=== PATIENT | male | born 2000 | race Caucasian/White ===

== ENCOUNTER 2023-02-21 14:48 | Emergency (ER) | payer OTHER, SELFPAY ==
[2023-02-21 14:58] VITALS: BP 163/121; PULSE 110; RESP 18; TEMP 36.4; O2SAT 97; BMI 45.6
--- NOTE | 2023-02-21 15:05 | CRLHL7_ITS ---
For Patients: As a result of the Cures Act, medical imaging exams and procedure reports are released immediately into your electronic medical record. You may view this report before your referring provider. If you have questions, please contact your health care provider. INDICATION: Chest pain. TECHNIQUE: Chest 1 views. COMPARISON: None. FINDINGS: Cardiovascular and mediastinum: Heart size and vasculature are normal in caliber and appearance. Lungs and pleural spaces: Lungs are clear. No sign of infiltrate or mass. No sign of pleural effusion. No pneumothorax. Bones and soft tissues: No significant findings. IMPRESSION: No acute or significant findings. Dictated by Francois Choudhury MD @ 02/21/2023 4:32:12 PM (Electronically Signed)
--- NOTE | 2023-02-21 15:06 | ED_ITS ---
HPI - Chest Pain General Chief Complaint: Chest Pain <Bharathi Manzanares MD - Last Filed: 02/21/23 15:08> Stated Complaint: Lungs feel full, legs weak, numb R arm <Bharathi Manzanares MD - Last Filed: 02/21/23 15:08> Time Seen by Provider: 02/21/23 15:05 <Bharathi Manzanares MD - Last Filed: 02/21/23 15:08> History of Present Illness HPI narrative: Patient is a 22-year-old gentleman who presents with 10 minutes of left- sided chest pain. 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 He is 22 years old takes no home medications. He admits that he is not active. He does not smoke or use alcohol in excess. He has had no other drug use. He states he feels tingly all over his body as result. He is having no shortness of breath no diaphoresis no nausea no vomiting no fevers no chills. <Bharathi Manzanares MD - Last Filed: 02/21/23 15:08> Related Data Home Medications: Home Medications Medication Instructions Recorded Confirmed No Known Home Medications 02/21/23 02/21/23 <Bharathi Manzanares MD - Last Filed: 02/21/23 15:08> Allergies/Adverse Reactions: Allergies Allergy/AdvReac Type Severity Reaction Status Date / Time No Known Drug Allergies Allergy Verified 02/21/23 15:01 <Bharathi Manzanares MD - Last Filed: 02/21/23 15:08> Review of Systems Status of ROS Reports: 10 or more systems reviewed and unremarkable except as noted in History and below <Bharathi Manzanares MD - Last Filed: 02/21/23 15:08> [facility] Social History: Social History Smoking Status: Never smoker Do you use any of these nicotine containing products: None How often do you have a drink containing alcohol: 2-4 times a month AUDIT-C Alcohol total score: 2 Non-prescribed substance use: denies use service: No <Bharathi Manzanares MD - Last Filed: 02/21/23 15:08> Exam Narrative Exam Narrative: EXAM GENERAL: Patient appears comfortable and well. Anxious. EYES: No scleral icterus. ENT: Tympanic membranes and oropharynx normal. THYROID: no thyroid nodules or thyromegaly. LYMPH: No supraclavicular or cervical lymphadenopathy. SKIN: Visible skin seen during exam normal or with benign process only. EXT: No dependent lower extremity pedal edema. HEART: Regular rate and rhythm with no murmurs, rubs, or gallops. LUNGS: Clear to auscultation bilaterally with no crackles or wheezes. ABD: Soft, non tender, non distended. PSYCH: Good eye contact, speech is not pressured. <Bharathi Manzanares MD - Last Filed: 02/21/23 15:08> Const Vital Signs, click to edit/add: Vital Signs - 24 hr 02/21/23 14:58 02/21/23 15:16 02/21/23 15:30 Temperature 97.6 F Pulse Rate 107 H 107 H Pulse Rate [Pulse Oximeter] 110 H Respiratory Rate 18 Blood Pressure [Right Upper Arm] 163/121 H Pulse Oximetry 97 97 97 Oxygen Delivery Method 02/21/23 15:45 02/21/23 17:06 Temperature Pulse Rate 104 H Pulse Rate [Pulse Oximeter] 98 Respiratory Rate 18 Blood Pressure [Right Upper Arm] 152/108 H Pulse Oximetry 97 96 Oxygen Delivery Method Room Air <Bharathi Manzanares MD - Last Filed: 02/21/23 15:08> Vital Signs - 24 hr 02/21/23 14:58 02/21/23 15:16 02/21/23 15:30 Temperature 97.6 F Pulse Rate 107 H 107 H Pulse Rate [Pulse Oximeter] 110 H Respiratory Rate 18 Blood Pressure [Right Upper Arm] 163/121 H Pulse Oximetry 97 97 97 Oxygen Delivery Method 02/21/23 15:45 02/21/23 17:06 Temperature Pulse Rate 104 H Pulse Rate [Pulse Oximeter] 98 Respiratory Rate 18 Blood Pressure [Right Upper Arm] 152/108 H Pulse Oximetry 97 96 Oxygen Delivery Method Room Air <Jorge Luis Casanova DO - Last Filed: 02/21/23 18:08> Course Course ED Course: Patient seen examined. EKG chest x-ray D-dimer troponin CBC basic metabolic panel ordered. <Bharathi Manzanares MD - Last Filed: 02/21/23 15:08> Vital Signs Vital signs: Initial Vital Signs Temperature 97.6 F 02/21/23 14:58 Temperature Source Temporal Artery Scan 02/21/23 14:58 Pulse Rate 110 H 02/21/23 14:58 Pulse Rhythm Regular 02/21/23 14:58 Respiratory Rate 18 02/21/23 14:58 Blood Pressure 163/121 H 02/21/23 14:58 Blood Pressure Mean 135 H 02/21/23 14:58 Blood Pressure Position Sitting 02/21/23 14:58 Pulse Oximetry 97 02/21/23 14:58 Vital Signs Temperature 97.6 F 02/21/23 14:58 Pulse Rate 110 H 02/21/23 14:58 Respiratory Rate 18 02/21/23 14:58 Blood Pressure 163/121 H 02/21/23 14:58 Pulse Oximetry 97 02/21/23 14:58 Temperature 97.6 F 02/21/23 14:58 Pulse Rate 98 02/21/23 17:06 Respiratory Rate 18 02/21/23 17:06 Blood Pressure 152/108 H 02/21/23 17:06 Pulse Oximetry 96 02/21/23 17:06 Oxygen Delivery Method Room Air 02/21/23 17:06 <Bharathi Manzanares MD - Last Filed: 02/21/23 15:08> Initial Vital Signs Temperature 97.6 F 02/21/23 14:58 Temperature Source Temporal Artery Scan 02/21/23 14:58 Pulse Rate 110 H 02/21/23 14:58 Pulse Rhythm Regular 02/21/23 14:58 Respiratory Rate 18 02/21/23 14:58 Blood Pressure 163/121 H 02/21/23 14:58 Blood Pressure Mean 135 H 02/21/23 14:58 Blood Pressure Position Sitting 02/21/23 14:58 Pulse Oximetry 97 02/21/23 14:58 Vital Signs Temperature 97.6 F 02/21/23 14:58 Pulse Rate 110 H 02/21/23 14:58 Respiratory Rate 18 02/21/23 14:58 Blood Pressure 163/121 H 02/21/23 14:58 Pulse Oximetry 97 02/21/23 14:58 Temperature 97.6 F 02/21/23 14:58 Pulse Rate 98 02/21/23 17:06 Respiratory Rate 18 02/21/23 17:06 Blood Pressure 152/108 H 02/21/23 17:06 Pulse Oximetry 96 02/21/23 17:06 Oxygen Delivery Method Room Air 02/21/23 17:06 <Jorge Luis Casanova DO - Last Filed: 02/21/23 18:08> MDM - Chest Pain MDM Narrative Medical decision making narrative: Patient's 22-year-old male who had an episode of left-sided chest pain. he was signed out to me by Dr. Manzanares pending repeat troponin. Patient was re- evaluated by myself and he is having some left upper chest pain on deep breaths but a constant pain is now gone. He is not tender to palpation. Repeat troponins were again negative. BMP showed no concerning abnormalities. CMP showed no concerning abnormalities. D-dimer was within normal limits. EKG showed no concerning findings. At this point with negative D-dimer PE seems unlikely. All his cardiac workup appears to make ACS unlikely. He does have elevated glucose while fasting and was recommended to have a follow-up with Dr. Manzanares outpatient for possible diabetes. Patient is agreeable to this plan. <Jorge Luis Casanova, - Last Filed: 02/21/23 18:08> Lab Data Labs: Lab Results 02/21/23 02/21/23 Range/Units 15:25 17:13 WBC 9.65 (4.50-11.00) K/uL RBC 5.49 (4.30-5.90) m/uL Hgb 15.9 (13.5-17.5) gm/dL Hct 44.1 (37.0-53.0) % MCV 80 (80-100) fL MCH 29 (26-34) pg MCHC 36 (32-36) gm/dL RDW Coeff of Jacinta 11.8 (11.5-15.5) % Plt Count 297 (140-440) K/uL Neut % (Auto) 58.6 (42.0-72.0) % Lymph % (Auto) 32.6 (20-44) % [place] % (Auto) 6.5 (0.0-11.0) % Eos % (Auto) 1.3 (0.0-7.0) % Baso % (Auto) 0.3 (0.0-3.0) % Neut # (Auto) 5.64 (1.7-7.0) K/uL Lymph # (Auto) 3.15 H (0.90-2.90) K/uL [place] # (Auto) 0.60 (0.00-0.90) K/UL Eos # (Auto) 0.13 (0.00-0.50) K/uL Baso # (Auto) 0.03 (0.00-0.30) K/uL Abs Immat Gran (auto) 0.07 (0.00-0.30) K/uL Imm/Tot Granulo (auto) 0.7 % D-Dimer Quant (PE/DVT) < 0.27 (0.00-0.50) ug/ml Sodium 138 (135-149) mmol/L Potassium 4.0 (3.6-5.1) mmol/L Chloride 101 (96-114) mmol/L Carbon Dioxide 22 (20-32) mmol/L Anion Gap 15 (7-15) mEq/L BUN 12 (5-24) mg/dL Creatinine 0.6 (0.5-1.5) mg/dL Estimated Creat Clear 185.25 Estimated GFR 139 ml/min Glucose 228 H (60-115) mg/dL Calcium 10.4 (8.4-10.6) mg/dL Troponin I < 0.01 L < 0.01 L (0.01-0.04) ng/mL <Bharathi Manzanares MD - Last Filed: 02/21/23 15:08> Lab Results 02/21/23 02/21/23 Range/Units 15:25 17:13 WBC 9.65 (4.50-11.00) K/uL RBC 5.49 (4.30-5.90) m/uL Hgb 15.9 (13.5-17.5) gm/dL Hct 44.1 (37.0-53.0) % MCV 80 (80-100) fL MCH 29 (26-34) pg MCHC 36 (32-36) gm/dL RDW Coeff of Jacinta 11.8 (11.5-15.5) % Plt Count 297 (140-440) K/uL Neut % (Auto) 58.6 (42.0-72.0) % Lymph % (Auto) 32.6 (20-44) % [place] % (Auto) 6.5 (0.0-11.0) % Eos % (Auto) 1.3 (0.0-7.0) % Baso % (Auto) 0.3 (0.0-3.0) % Neut # (Auto) 5.64 (1.7-7.0) K/uL Lymph # (Auto) 3.15 H (0.90-2.90) K/uL [place] # (Auto) 0.60 (0.00-0.90) K/UL Eos # (Auto) 0.13 (0.00-0.50) K/uL Baso # (Auto) 0.03 (0.00-0.30) K/uL Abs Immat Gran (auto) 0.07 (0.00-0.30) K/uL Imm/Tot Granulo (auto) 0.7 % D-Dimer Quant (PE/DVT) < 0.27 (0.00-0.50) ug/ml Sodium 138 (135-149) mmol/L Potassium 4.0 (3.6-5.1) mmol/L Chloride 101 (96-114) mmol/L Carbon Dioxide 22 (20-32) mmol/L Anion Gap 15 (7-15) mEq/L BUN 12 (5-24) mg/dL Creatinine 0.6 (0.5-1.5) mg/dL Estimated Creat Clear 185.25 Estimated GFR 139 ml/min Glucose 228 H (60-115) mg/dL Calcium 10.4 (8.4-10.6) mg/dL Troponin I < 0.01 L < 0.01 L (0.01-0.04) ng/mL <Jorge Luis Casanova DO - Last Filed: 02/21/23 18:08> Discharge Plan Discharge Clinical Impression: Acute hyperglycemia, Atypical chest pain <Bharathi Manzanares MD - Last Filed: 02/21/23 15:08> Patient Disposition: Home, Self-Care <Bharathi Manzanares MD - Last Filed: 02/21/23 15:08> Condition: Stable <Bharathi Manzanares MD - Last Filed: 02/21/23 15:08> Instructions: Noncardiac Chest Pain (ED) <Bharathi Manzanares MD - Last Filed: 02/21/23 15:08> Additional Instructions: In lab work and EKG makes cardiac cause of your test for pain to be unlikely. Also is unlikely to be a blood clot at this time. there is not a clear diagnosis for chest pain but this time it does not appear to be emergent. Of note your blood sugar was elevated and will give you information for Dr. Manzanares for outpatient follow-up for possible diabetes. Return for new worsening symptoms <Bharathi Manzanares MD - Last Filed: 02/21/23 15:08> Prescriptions: No Action No Known Home Medications <Bharathi Manzanares MD - Last Filed: 02/21/23 15:08> Follow Up/Referrals: Chrissy Juárez MD [Staff Physician] - <Bharathi Manzanares MD - Last Filed: 02/21/23 15:08> Stand Alone Forms: MyHealth Info Instructions <Bharathi Manzanares MD - Last Filed: 02/21/23 15:08>
[2023-02-21 15:16] VITALS: PULSE 107; O2SAT 97
[2023-02-21 15:30] VITALS: PULSE 107; O2SAT 97
[2023-02-21 15:32] LABS: Basophils Absolute Auto 0.03 K/uL (0.00-0.30); Basophils Percent Auto 0.3 % (0.0-3.0); Eosinophils Absolute Auto 0.13 K/uL (0.00-0.50); Eosinophils Percent Auto 1.3 % (0.0-7.0); Hematocrit 44.1 % (37.0-53.0); Hemoglobin* 15.9 gm/dL (13.5-17.5); Immature Granulocytes Abs Auto 0.07 K/uL (0.00-0.30); Immature Granulocytes Pct Auto 0.7 %; Lymphocytes Absolute Auto 3.15 K/uL (0.90-2.90); Lymphocytes Percent Auto 32.6 % (20-44); Mean Corpuscular HGB Conc 36 gm/dL (32-36); Mean Corpuscular Hemoglobin 29 pg (26-34); Mean Corpuscular Volume 80 fL (80-100); Monocytes Percent Auto 6.5 % (0.0-11.0); Neutrophils Absolute Auto 5.64 K/uL (1.7-7.0); Neutrophils Percent Auto 58.6 % (42.0-72.0); Platelet Count* 297 K/uL (140-440); RDW Coefficient of Variation % 11.8 % (11.5-15.5); Red Blood Count 5.49 m/uL (4.30-5.90); Slide Review Reflex No; White Blood Count* 9.65 K/uL (4.50-11.00)
[2023-02-21 15:45] VITALS: PULSE 104; O2SAT 97
[2023-02-21 15:47] LABS: Chloride* 101 mmol/L (96-114); Sodium* 138 mmol/L (135-149)
[2023-02-21 15:50] LABS: Anion Gap 15 mEq/L (7-15); Blood Urea Nitrogen* 12 mg/dL (5-24); Carbon Dioxide* 22 mmol/L (20-32); Creatinine* 0.6 mg/dL (0.5-1.5); Est. Creatinine Clearance* 185.25; Estimated Glomerular Filt Rate 139 ml/min
[2023-02-21 15:51] LABS: Calcium* 10.4 mg/dL (8.4-10.6); Glucose* 228 mg/dL (60-115)
[2023-02-21 15:53] LABS: D Dimer Quantitative* < 0.27 ug/ml (0.00-0.50)
[2023-02-21 16:04] LABS: Troponin I* < 0.01 ng/mL (0.01-0.04)
[2023-02-21 17:06] VITALS: BP 152/108; PULSE 98; RESP 18; O2SAT 96
[2023-02-21 17:52] LABS: Troponin I* < 0.01 ng/mL (0.01-0.04)
== END 2023-02-21 18:17 | disposition home or self-care (01) ==
PROVIDERS: Emergency Provider Internal Medicine
DX: R73.9 Hyperglycemia, unspecified (principal); R07.89 Other chest pain
CPT/HCPCS: 36415; 71045; 80048; 84484; 85025; 85379; 93005; 99283; 99284; 99285

== ENCOUNTER 2023-11-21 16:07 | Outpatient (CLI) | payer OTHER, SELFPAY ==
--- OUTSIDE RECORDS SUMMARY | 2023-11-21 16:13 | XMS_ITS | Continuity of Care Document ---
Author Name [facility] Organization [facility] Care Team Providers Care Certified Welding Inspector Name Role Phone [facility] Unavailable Unavailable Social History Combined list of available smoking, tobacco, and other social history from Department of Defense and Veterans Affairs facilities. Social History Type Response Date Comment Sourc e This section is an empty social history section. DoD
--- OUTSIDE RECORDS SUMMARY | 2023-11-21 16:13 | XMS_ITS | Clinical Summary ---
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 Voice hoarseness 08/18/2010 Sleep disturbance 10/01/2008 ADHD, predominantly inattentive type Overview: Chronic Controlled Substance Agreement done 03/29/05 ADHD Med Screening done 03/29/05 Resolved Problems Problem Noted Date Diagnosed Date Resolved Date ODD (oppositional defiant disorder) 11/09/2013 07/26/2017 Unspecified disturbance of conduct 05/22/2012 07/14/2013 Defiant Behavior Disorder 10/02/2010 Immunizations Name Administration Dates Next Due DTaP 11/15/2004, 2,02/12/2000,12/17,1999 HIB HbOC (HibTITER) 08/26/2001, 0,1999,10/16 HPV 9 (Gardasil 9) 02/17/2021,06/02/2020, 020 Hepatitis A (Peds) 12/18/2010,02/16/2010 Hepatitis B (Peds) 05/23/2000,1999, 000 Inactivated Polio Vaccine 11/15/2004,06/2001,1999,10/16 Influenza, IIV3 (Age >=3 years) 03/04/2012,02/16 Influenza, IIV4 02/17/2021,,07/17/2019,06/28,06/06/2015 MMR 11/15/2004,12/11/2000 Meningococcal Vaccine (Menveo) 06/28/2017,2010 Pneumococcal conj 7-Valent (Prevnar 7) 1,12/11/2000 Tdap 06/02/2020,02/16/2010 Varicella Vaccine 02/16/2010,09/06/2000 Family History Medical History Relation Name Comments Good Health Father Mata Hypertension Maternal Grandfather Other Maternal Grandfather Anxiety Psychiatric illness Maternal Grandfather anxiety Diabetes Maternal Grandmother Heart Disease Maternal Grandmother CAD Cancer-breast Mother Briana Other Mother Briana Depression-Sert raline Other Other 1 ADHD maternal a nd paternal cousins Testicular cancer Other 2 paternal cousin Other Paternal Aunt Migraine Heada lonny Allergies Paternal Grandmother Cancer Paternal Grandmother lymphom a Relation Name Status Comments Father Mata Alive Maternal Grandfather Alive Maternal Grandmother Alive Mother Briana Alive Other 1 Other 2 paternal cousin Alive Paternal Aunt Paternal Grandfather Alive Paternal Grandmother Alive Social History Tobacco Use Types Packs/Day Years Used Date Smoking Tobacco: Never Smokeless Tobacco: Never Tobacco Cessation:Counseling Given: Yes Alcohol Use Standard Drinks/Week Comments Yes 0 (1 standard drink = 0.6 oz pur e alcohol) occasionally PHQ-2 Answer Date Recorded PHQ-2 TOTAL SCORE 0 02/17/2021 Social Connections Answer Date Recorded Frequency of Communication with Friends and Fami ly Not on file 05/27/2021 Financial Resource Strain Answer Date R ecorded Difficulty of Paying Living Expenses Not on file 05/27/2021 Difficulty of Paying Living Expenses Not on file 05/27/2021 Sex and Gender Information Value Date Recorded Sex Assigned at Not on file Gender Identity Not on file Sexual Orientation Not on file Obstetrics History Last Filed Vital Signs Vital Sign Reading Time Taken Comments Blood Pressure 131/86 02/17/2021 9:38 AM CDT Pulse 90 02/17/2021 9:38 AM CDT Temperature 37.4 ??C (99.3 ??F) 02/17/2021 9:38 AM CD T Respiratory Rate 20 06/04/2007 3:19 PM INVESTMENT CONSULTANT Oxygen Saturation 97% 02/17/2021 9:38 AM CDT Inhaled Oxygen Concentration - - Weight 120.7 kg (266 lb 3.2 oz) 02/17/2021 9:38 AM CDT Height 172.7 cm (5' 8) 02/17/2021 9:38 AM CDT Body Mass Index 40.48 02/17/2021 9:38 AM CDT Plan of Treatment Health Maintenance Due Date Last Done Comments HIV for age 15-65 08/22/2014 Hepatitis C screening for age 18-79 08/22/2017 BMI (ht and wt on same day) for age 18+ 02/17/2022 02/17/2021, 01/03/2021, 06/02/2020, Additional history exists Depression screening for age 12+ 02/17/2022 02/17/2021, 07/20/2019, 07/17/2019, Additional history exists COVID-19 vaccine series (2022- season) 2023 10/18/2020, 09/24/2020 Influenza for age 9-49 01/26/2024 , 06/02/2020, 07/17/2019, Additional history exists Tetanus booster 06/02/2030 06/02/2020, 02/16/2010 Pneumococcal series for age 6-64 Aged Out 01/24/2001, 12/11/2000 No longer eligibl e based on patient's age to complete this topic Tdap Completed 06/02/2020, 02/16/2010 HPV series for age 9-26 Completed 02/18/20, 06/02/2020, 07/17/2019 Care Teams Chiller Operator Relationship Specialty Start Date End Date Pcp, No . PCP - General 06/02/20
== END 2023-11-21 16:08 | disposition home or self-care (01) ==
PROVIDERS: Visit Provider Registered Nurse
DX: R10.9 Unspecified abdominal pain (principal); E11.9 Type 2 diabetes mellitus without complications; R03.0 Elevated blood-pressure reading, without diagnosis of hypertension; R73.9 Hyperglycemia, unspecified; R79.89 Other specified abnormal findings of blood chemistry
CPT/HCPCS: 80053; 83690; 84443; 87086

== ENCOUNTER 2023-12-03 10:31 | Outpatient (CLI) | payer OTHER, SELFPAY ==
--- OUTSIDE RECORDS SUMMARY | 2023-12-04 06:35 | XMS_ITS | Clinical Summary ---
Author Organization [facility] Address [place], [place] [address] Care Team Providers Care Soccer Referee Name Role Phone Pcp, No Primary Care [...] T Respiratory Rate 20 06/04/2007 3:19 PM COMMUNITY MENTAL HEALTH WORKER Oxygen Saturation 97% 02/17/2021 9:38 AM CDT [...] 9-26 Completed 02/18/20, 06/02/2020, 07/17/2019 Care Teams Soccer Referee Relationship Specialty Start Date End Date Pcp, No . PCP - General 06/02/20
--- OUTSIDE RECORDS SUMMARY | 2023-12-04 06:35 | XMS_ITS | Continuity of Care Document ---
Author Name [facility] Organization [facility] Care Team Providers Care Structural Ironworker Name Role Phone [facility] Unavailable Unavailable Social History Combined list of available smoking, tobacco, and other social history from Department of Defense and Veterans Affairs facilities. Social History Type Response Date Comment Sourc e This section is an empty social history section. DoD
== END 2023-12-03 10:32 | disposition home or self-care (01) ==
LOC: NFLDREF 12-04 06:33
PROVIDERS: PCP Registered Nurse; Referring Provider Registered Nurse; Visit Provider Registered Nurse
DX: R79.89 Other specified abnormal findings of blood chemistry (principal); K76.0 Fatty (change of) liver, not elsewhere classified; I10 Essential (primary) hypertension; E11.9 Type 2 diabetes mellitus without complications
CPT/HCPCS: 76705; 80061

== ENCOUNTER 2024-03-11 11:14 | Outpatient (CLI) | payer OTHER, SELFPAY ==
--- OUTSIDE RECORDS SUMMARY | 2024-03-11 11:17 | XMS_ITS | Continuity of Care Document ---
Author Name [facility] Organization [facility] Care Team Providers Care Bioinformatics Assistant Name Role Phone [facility] Unavailable Unavailable Social History Combined list of available smoking, tobacco, and other social history from Department of Defense and Veterans Affairs facilities. Social History Type Response Date Comment Sourc e This section is an empty social history section. DoD
== END 2024-03-11 11:15 | disposition home or self-care (01) ==
LOC: NFLDREF 11:14
PROVIDERS: PCP Registered Nurse; Visit Provider Registered Nurse
DX: K76.0 Fatty (change of) liver, not elsewhere classified (principal)
CPT/HCPCS: 80061

== ENCOUNTER 2024-03-16 09:06 | Outpatient (CLI) | payer OTHER, SELFPAY ==
--- OUTSIDE RECORDS SUMMARY | 2024-03-17 16:46 | XMS_ITS | Clinical Summary ---
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 Voice hoarseness 08/18/2010 Sleep disturbance 10/01/2008 ADHD, predominantly inattentive type Overview (07/23/2006): Chronic Controlled Substance Agreement done 03/29/05 ADHD Med Screening done 03/29/05 Resolved Problems Problem Noted Date Diagnosed Date Resolved Date ODD (oppositional defiant disorder) 11/09/2013 07/26/2017 Unspecified disturbance of conduct 05/22/2012 07/14/2013 Defiant Behavior Disorder 10/02/2010 Immunizations Name Administration Dates Next Due DTaP 11/15/2004, 2,02/12/2000,12/17,1999 HIB HbOC (HibTITER) 08/26/2001, 0,1999,10/16 HPV 9 (Gardasil 9) 02/17/2021,06/02/2020, 020 Hepatitis A (Peds) 12/18/2010,02/16/2010 Hepatitis B (Peds) 05/23/2000,1999,05/23/2 000 Inactivated Polio Vaccine 11/15/2004,06/2001,1999,10/16 Influenza, IIV3 (Age >=3 years) 03/04/2012,02/16 Influenza, IIV4 02/17/2021, 1,07/17/2019,06/28,06/06/2015 MENINGOCOCCAL VACCINE 2 VIAL [id number] (MENVEO) 06/28/2017,12/18/2010 MMR 11/15/2004,12/11/2000 Pneumococcal conj 7-Valent (Prevnar 7) 1,12/11/2000 Tdap [...] T Respiratory Rate 20 06/04/2007 3:19 PM PROFESSOR OF FINE ART Oxygen Saturation 97% 02/17/2021 9:38 AM CDT [...] 07/17/2019, Additional history exists COVID-19 vaccine series (2023- season) 2024 10/18/2020, 09/24/2020 Influenza for age 9-49 01/26/2024 , 06/02/2020, 07/17/2019, Additional history exists Tetanus booster 06/02/2030 06/02/2020, 02/16/2010 Pneumococcal series for age 6-64 Aged Out 01/24/2001, 12/11/2000 No longer eligibl e based on patient's age to complete this topic Tdap Completed 06/02/2020, 02/16/2010 HPV series for age 9-26 Completed 02/18/20, 06/02/2020, 07/17/2019 Care Teams Braille And Talking Books Clerk Relationship Specialty Start Date End Date Pcp, No . PCP - General 06/02/20
--- OUTSIDE RECORDS SUMMARY | 2024-03-17 16:46 | XMS_ITS | Continuity of Care Document ---
Author Name [facility] Organization [facility] Care Team Providers Care Hvac Installer Name Role Phone [facility] Unavailable Unavailable Social History Combined list of available smoking, tobacco, and other social history from Department of Defense and Veterans Affairs facilities. Social History Type Response Date Comment Sourc e This section is an empty social history section. DoD
== END 2024-03-16 09:07 | disposition home or self-care (01) ==
LOC: NFLDREF 03-17 16:44
PROVIDERS: PCP Registered Nurse; Referring Provider Registered Nurse; Visit Provider Registered Nurse
DX: K76.0 Fatty (change of) liver, not elsewhere classified (principal); E11.9 Type 2 diabetes mellitus without complications; I10 Essential (primary) hypertension; E78.6 Lipoprotein deficiency
CPT/HCPCS: 80053; 82043; 82570

== ENCOUNTER 2024-10-05 16:47 | Outpatient (CLI) | payer OTHER, SELFPAY | END 2024-10-05 16:48 | disposition home or self-care (01) | LOC: NFLDREF 16:48 | PROVIDERS: PCP Registered Nurse; Visit Provider Registered Nurse | DX: I10 Essential (primary) hypertension (principal); E11.9 Type 2 diabetes mellitus without complications | CPT/HCPCS: 80053 ==

== ENCOUNTER 2024-11-02 17:36 | Outpatient (CLI) | payer OTHER, SELFPAY | END 2024-11-02 17:37 | disposition home or self-care (01) | LOC: NFLDREF 17:37 | PROVIDERS: PCP Registered Nurse; Visit Provider Registered Nurse | DX: K76.0 Fatty (change of) liver, not elsewhere classified (principal) | CPT/HCPCS: 80061 ==

== ENCOUNTER 2025-04-25 16:45 | Emergency (ER) | payer OTHER, SELFPAY ==
--- OUTSIDE RECORDS SUMMARY | 2025-04-25 16:47 | XMS_ITS | Clinical Summary ---
Author Organization [facility] Address [address] [place] [id number] Care Team Providers Care Watch Adjuster Name Role Phone Pcp, No Primary Care [...] 05/22/2012 07/14/2013 Defiant Behavior Disorder 10/02/2010 Immunizations Immunization Administration Dates Next Due DTaP 11/15/2004, 2,02/12/2000,12/17,1999 [...] Heart Disease Maternal Grandmother CAD Cancer-breast Mother Elmo Other Mother Elmo Depression-Sert raline Other Other 1 ADHD maternal a nd paternal cousins Testicular cancer Other 2 paternal cousin Other Paternal Aunt Migraine Heada lonny Allergies Paternal Grandmother Cancer Paternal Grandmother lymphom a Relation Name Status Comments Father Mata Alive Maternal Grandfather Alive Maternal Grandmother Alive Mother Elmo Alive Other 1 Other 2 paternal cousin [...] Recorded Sex Assigned at Not on file Legal Sex 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 Gender Identity Not on file Sexual Orientation Not on file Obstetrics History Last Filed Vital Signs Vital Sign Reading Time Taken Comments Blood Pressure 131/86 02/17/2021 9:38 AM CDT Pulse 90 02/17/2021 9:38 AM CDT Temperature 37.4 C (99.3 F) 02/17/2021 9:38 AM CDT Respiratory Rate 20 06/04/2007 3:19 PM RIVETER PORTABLE MACHINE Oxygen Saturation 97% 02/17/2021 9:38 AM CDT [...] 02/17/2022 02/17/2021, 07/20/2019, 07/17/2019, Additional history exists Influenza Vaccine (#1) 2025 , 06/02/2020, 07/17/2019, Additional history exists Tetanus booster 06/02/2030 06/02/2020, 02/16/2010 RSV vaccine for adults or (1 - 1-dose 75+ series) 08/22/2074 Hepatitis B series for 19+ Completed 05/23, 1999, 1999 Pneumococcal series for age 6-49 Aged Out 01/24/2001, 12/11/2000 No longer eligibl e based on patient's age to complete this topic HPV series for age 9-45 Completed 02/18/20, 06/02/2020, 07/17/[address] [facility] Care Teams Watch Adjuster Relationship Specialty Start Date End Date Pcp, No . PCP - General 06/02/20
[2025-04-25 16:56] VITALS: BP 145/99; PULSE 117; RESP 18; TEMP 35.7; O2SAT 96; BMI 38.0
== END 2025-04-25 18:17 | disposition left against medical advice (07) ==
LOC: ED 18:08
PROVIDERS: Emergency Provider Student in an Organized Health Care Education/Training Program; PCP Registered Nurse
DX: Z53.21 Procedure and treatment not carried out due to patient leaving prior to being seen by health care provider (principal)

== ENCOUNTER 2025-05-21 08:26 | Outpatient (CLI) | payer OTHER, SELFPAY | END 2025-05-21 08:27 | disposition home or self-care (01) | PROVIDERS: PCP Family Medicine; Visit Provider Family Medicine | DX: E11.9 Type 2 diabetes mellitus without complications (principal); E78.1 Pure hyperglyceridemia; E78.6 Lipoprotein deficiency; I10 Essential (primary) hypertension; K76.0 Fatty (change of) liver, not elsewhere classified | CPT/HCPCS: 80053; 80061; 82043; 82570; 82607 ==